=== PATIENT | male | born 1940 | race Caucasian/White ===

== ENCOUNTER 2019-07-25 13:51 | Inpatient (IN) | payer OTHER ==
[2019-07-25] VITALS (8 sets, daily range): BP systolic 76–139; BP diastolic 36–46
[~2019-07-25] VITALS: Ht 177.8 cm; Wt 101.6 kg
[~2019-07-25 13:51] MED LIST: ALLOPURINOL 30300 M2 PO; ASPIR 8181 MG PO; ATORVASTATIN CA40 MG PO; COREG6.25 MG PO; COZAAR 50 MG TA50 M2 PO; HIGH B/P MED; HUMALOG100 UNIT/1 SUBQ; INDOMETHACIN 5050 MG PO; NITROGLYCERIN0.4 MG SUBLING; PLAVIX 75 MG TA75 M1 PO; PRAVACHOL40 MG PO; PROTONIX40 M1 PO; SEROQUEL 25 MG25 M1 PO; VERAPAMIL HCL80 MG PO
[2019-07-25 14:39] LABS: HEMATOCRIT 39.5 % (42.0-52.0); MCH 30.3 pg (26.0-34.0); MCHC 32.9 g/dL (28.0-37.0); MCV 92.4 fL (80.0-100.0); MPV 10.1 fl. (7.2-11.1); NUCLEATED RBCS 0 /100WBC; PLATELET COUNT* 338 thou/uL (150-400); RBC 4.27 mil/uL (4.50-6.00); RDW-CV 16.7 % (10.5-14.5); WBC 25.9 thou/uL (4.0-11.0)
[2019-07-25 14:50] LABS: CALCIUM 9.1 mg/dL (8.5-10.1); CREATININE 7.1 mg/dL (0.6-1.3)
[2019-07-25 14:51] LABS: APTT 27.8 Seconds (25.0-31.3); PROTIME 10.4 Seconds (9.20-11.50)
[2019-07-25 15:02] LABS: ALBUMIN 2.8 g/dL (3.4-5.0); CK-MB MASS 1.4 ng/mL (<0.5-3.6); TOTAL BILIRUBIN 0.9 mg/dL (<0.1-1.0)
[2019-07-25 15:21] LABS: ABSOLUTE MONOCYTES 1.8 thou/uL (0.0-1.2); ABSOLUTE NEUTROPHILS 23.1 thou/uL (1.6-8.1)
[2019-07-25 15:22] LABS: ANISOCYTOSIS 1+; LARGE PLATELETS OCCASIONAL; PLATELET ESTIMATE ADEQUATE
--- NOTE | 2019-07-25 16:41 | EKG ---
[place] [address] ELECTROCARDIOGRAM REPORT Name: JANN CAMARGO Room: [place] [address] ADM IN M.R.#: [id number] Admission: 07/25/19 Attend Phys: Alice Bose Discharge: Date of : 44 Report #: [id number] THIS REPORT FOR: //name// [facility] ED Test Date: 2019-07-25 Test Time: 16:14:55 Pat Name: JANN SHAFFERTRONG Department: Room: [facility] Gender: M Manager University: [facility] : 1940 Requested By: Wilfrido Norton Order Number: [id number] MD: Vishal Real Measurements Intervals [place] Rate: 60 P: -29 AZ: 271 QRS: -11 QRSD: 121 T: 65 QT: 431 QTc: 431 Interpretive Statements Sinus arrhythmia Prolonged [place] interval Right bundle branch block Low voltage limb leads Compared to ECG 11/12/2016 07:50:46 Right bundle-branch block now present Ectopic atrial rhythm no longer present Electronically Signed On 07-25-2019 16:40:40 [employer]STAIRS [employer] by Vishal Real [email or web address] <ELECTRONICALLY SIGNED> By: Vishal Real MD, FACC 07/25/19 1640 1614 1614 Vishal Real MD, FAC /EPI
[2019-07-25 16:49] LABS: INFLUENZA A ANTIGEN Negative (Negative); INFLUENZA B ANTIGEN Negative (Negative)
[2019-07-25 16:49] LABS: BE -8.4 mmol/L (-2 to +3); PCO2 39.6 mmHg (35.0-45.0)
[2019-07-25 16:52] LABS: PO2 296.6 mmHg (75.0-100.0); pH 7.272 (7.340-7.450)
[2019-07-25 16:59] LABS: URINE BILIRUBIN NEGATIVE (Negative); URINE BLOOD NEGATIVE (Negative); URINE CLARITY CLEAR; URINE COLOR YELLOW; URINE GLUCOSE-RANDOM 3+ (Negative); URINE KETONES NEGATIVE (Negative); URINE LEUKOCYTES-REFLEX NEGATIVE (Negative); URINE NITRITE-REFLEX NEGATIVE (Negative); URINE PROTEIN TRACE (Negative); URINE UROBILINOGEN 0.2 E.U./dl (0.2-1.0)
[2019-07-25 18:20] LABS: AMP/METHAMP Negative (Negative); BARBITURATES Negative (Negative); BENZODIAZEPINES Negative (Negative); COCAINE Negative (Negative); METHADONE Negative (Negative); OPIATES Negative (Negative); PCP Negative (Negative); THC Negative (Negative)
[2019-07-26] VITALS (68 sets, daily range): BP systolic 62–132; BP diastolic 30–52
[2019-07-26 04:41] LABS: HEMATOCRIT 35.1 % (42.0-52.0); HEMOGLOBIN 11.4 gm/dL (14.0-18.0); MCH 30.1 pg (26.0-34.0); MCHC 32.3 g/dL (28.0-37.0); MCV 92.9 fL (80.0-100.0); RBC 3.78 mil/uL (4.50-6.00); RDW-CV 17.2 % (10.5-14.5); WBC 21.2 thou/uL (4.0-11.0)
[2019-07-26 04:54] LABS: CALCIUM 7.7 mg/dL (8.5-10.1); CREATININE 5.6 mg/dL (0.6-1.3); MAGNESIUM 1.6 mg/dL (1.8-2.4); PHOSPHORUS* 4.1 mg/dL (2.5-4.9)
[2019-07-26 05:13] LABS: BE -10.5 mmol/L (-2 to +3); pH 7.302 (7.340-7.450)
[2019-07-26 05:14] LABS: PO2 163.4 mmHg (75.0-100.0)
--- NOTE | 2019-07-26 13:33 | 2DMMODE ---
[place] [address] 2 D/M-MODE ECHOCARDIOGRAM Name: CAMARGOJANN Room: [address] IN .R.#: [id number] Admission: 07/25/19 Attend Phys: Alice alcaraz Sa Discharge: Date of : 44 Date of Service: 07/26/19 1332 Report #: [id number] THIS REPORT FOR: //name// APPROVED REPORT Study performed: 07/26/2019 09:55:42 EXAM: Comprehensive 2D, Doppler, and color-flow Echocardiogram Patient Location: Bedside BSA: 2.15 HR: 81 bpm BP: 108/31 mmHg Other Information Study Quality: Technically Difficult Technically limited study due to inability to position patient. Indications Dyspnea 2D Dimensions IVSd: 14.38 (7-11mm) LVOT Diam: 20.07 (18-24mm) LVDd: 45.73 mm PWd: 10.16 (7-11mm) Ascending Ao: 38.23 (22-36mm) LVDs: 23.12 (25-40mm) Aortic Root: 32.62 mm Volumes Left Atrial Volume (Systole) LA ESV Index: 28.50 mL/m2 Aortic Valve AoV Peak Gurpreet.: 1.82 m/s AO Peak Gr.: 13.27 mmHg LVOT Max P.41 mmHg AO Mean Gr.: 7.37 mmHg LVOT Mean P.59 mmHg LVOT Max V: 0.92 m/s AO V2 VTI: 26.38 cm LVOT Mean V: 0.57 m/s MISTY (VTI): 1.82 cm2 LVOT V1 VTI: 15.16 cm Mitral Valve E/A Ratio: 0.81 MV Decel. Time: 267.30 ms MV E Max Gurpreet.: 0.61 m/[place] [address] 2 D/M-MODE ECHOCARDIOGRAM Name: JANN CAMARGO Room: [address] IN .R.#: [id number] Admission: 07/25/19 Attend Phys: Alice alcaraz Sa Discharge: Date of : 44 Date of Service: 07/26/19 1332 Report #: [id number] MV PHT: 77.52 ms MVA (PHT): 2.84 cm2 TDI E/Lateral E': 7.63 E/Medial E': 8.71 Medial E' Gurpreet.: 0.07 m/s Lateral E' Gurpreet.: 0.08 m/s Pulmonary Valve PV Peak Gurpreet.: 0.81 m/s PV Peak Gr.: 2.65 mmHg Tricuspid Valve RAP Estimate: 5.00 mmHg TR Peak Gr.: 15.11 mmHg RVSP: 20.11 mmHg PA Pressure: 20.11 mmHg Left Ventricle The left ventricle is normal size. There is normal LV segmental wall motion. There is normal left ventricular wall thickness. Left ventricular systolic function is normal. The left ventricular ejection fraction is within the normal range. LVEF is 60-65%. Grade I - abnormal relaxation pattern. Right Ventricle The right ventricle is normal size. The right ventricular systolic function is normal. Atria The left atrium size is normal. Interatrial septum not well visualized. The right atrium size is normal. Aortic Valve The Aortic valve is sclerotic. No aortic regurgitation is present. There is no aortic valvular stenosis. Mitral Valve The mitral valve is normal in structure. There is no mitral valve regurgitation noted. No evidence of mitral valve stenosis. Tricuspid Valve The tricuspid valve is normal in structure. Trace tricuspid regurgitation. estimated pa pressure 20 mm Hg Pulmonic Valve Pulmonic valve is not well visualized. There is no pulmonic [place] [address] 2 D/M-MODE ECHOCARDIOGRAM Name: JANN CAMARGO Room: [address] IN .R.#: [id number] Admission: 07/25/19 Attend Phys: Alice alcaraz Sa Discharge: Date of : 44 Date of Service: 07/26/19 1332 Report #: [id number] Great Vessels Aortic root is mildly dilated. IVC is not well visualized. Pericardium There is no pericardial effusion. <Conclusion> Left ventricular systolic function is normal. The left ventricular ejection fraction is within the normal range. The Aortic valve is sclerotic. <ELECTRONICALLY SIGNED> By: Cuate Bower MD, FACC 07/26/19 133 31 31 Cuate Bower MD, FACC /INF
--- NOTE | 2019-07-26 18:05 | CON ---
[address] [address] CONSULTATION Name: JANN CAMARGO Room: [address] IN M.R.#: [id number] Admission: 07/25/19 Attend Phys: Alice Bose Discharge: Date of : 44 Report #: [id number] THIS REPORT FOR: //name// CC: Ruiz Mike DATE OF SERVICE: 07/26/2019 REASON FOR CONSULTATION: I was asked to see this 79-year-old gentleman for acute respiratory failure. HISTORY OF PRESENT ILLNESS: The patient is currently on the ventilator and is sedated. He is not able to give me any information. Apparently, he is a [facility] resident, who was brought to Emergency Room via EMS, was found down unresponsive by family member. His blood sugar was more than 400 for many days. They were not sure how long he was unresponsive. PAST MEDICAL HISTORY: Coronary artery disease, dementia, diabetes mellitus, hypertension, and renal insufficiency. ALLERGIES: No known drug allergies. MEDICATIONS: Currently, he is on Zosyn, DuoNeb, Levophed, normal saline, Protonix, potassium, fentanyl, and Versed drip. SOCIAL HISTORY: Unable to obtain. The patient is on the ventilator and sedated. FAMILY HISTORY: Unable to obtain. The patient is on the ventilator and sedated. PHYSICAL EXAMINATION: GENERAL: This is an elderly gentleman on the ventilator. VITAL SIGNS: His O2 saturation on 40% FiO2 is 96%, respiratory rate 14, heart rate 100, blood pressure 102/68, temperature of 102.2. HEENT: Normocephalic, atraumatic. Pupils equal, round, reactive to light. He is orally intubated. Nose is clear. NECK: There is no lymphadenopathy or thyromegaly. CARDIOVASCULAR: Regular rate and rhythm. PMI is nondisplaced. CHEST: Inspection is normal. LUNGS: There are bibasilar crackles, dullness at the bases. ABDOMEN: Soft. Bowel sounds are good. There is no mass. EXTREMITIES: There is no edema. LYMPHATICS: There is no lymphadenopathy. NEUROLOGIC: On vent, sedated. [place]IN: [place] [address] CONSULTATION Name: JANN CAMARGO Trevor Room: [address] IN [facility].#: [id number] Admission: 07/25/19 Attend Phys: Alice Bose Discharge: Date of : 44 Report #: [id number] LABORATORY DATA: I reviewed the following lab data: CT of the chest showed ET tube in low position, mild basilar atelectasis/infiltrate. CT of abdomen showed fecal impaction, adxkwfmp-pm-ipiwow distention of urinary bladder, right kidney mass. Cervical spine CT, no acute abnormality. CT of the head, no acute abnormality. WBC of 25.9, hemoglobin of 13, platelets 338. Sodium 146, potassium 5, chloride 110, CO2 of 20, glucose 325, BUN 105, creatinine is 7.1. Lactic acid 3.6, repeat 1.3. Troponin is less than 0.06. BNP of 2023. Influenza A and B negative. Urine drug screen negative. IMPRESSION: 1. Acute respiratory failure secondary to septic shock, acute kidney injury versus others. 2. Septic shock? source could be pneumonia versus urinary tract infection. 3. Septic shock. 4. Acute kidney injury. 5. Diabetes mellitus. 6. Leukocytosis. 7. Encephalopathy. PLAN AND RECOMMENDATIONS: 1. Titrate FiO2 to keep O2 saturation 94%. 2. ABG. We will change vent setting per ABG. 3. Continue ventilator support until the patient is more stable. 4. Pressors to keep mean arterial pressure more than 65. 5. Follow up blood cultures. 6. Continue antibiotic. 7. The patient has acute kidney injury, may consider Nephrology consultation. Continue hydration. Monitor creatinine and potassium. 8. Protonix for stress ulcer prophylaxis. 9. Lovenox for DVT prophylaxis. 10. Morning ABG and chest x-ray. 10. The findings and recommendations were discussed with RN and RT. Thank you very much for allowing me to participate in care of this very nice gentleman. <ELECTRONICALLY SIGNED> By: Layla Hernandez MD 07/26/19 1805 0433 [id number] Hernandez MD /nt
[2019-07-27] VITALS (68 sets, daily range): BP systolic 74–151; BP diastolic 35–120
[2019-07-27 04:49] LABS: HEMATOCRIT 36.8 % (42.0-52.0); HEMOGLOBIN 11.8 gm/dL (14.0-18.0); MCHC 32.2 g/dL (28.0-37.0); MCV 93.2 fL (80.0-100.0); MPV 10.1 fl. (7.2-11.1); RBC 3.94 mil/uL (4.50-6.00); RDW-CV 16.7 % (10.5-14.5); WBC 27.1 thou/uL (4.0-11.0)
[2019-07-27 05:04] LABS: ALBUMIN 1.7 g/dL (3.4-5.0); CALCIUM 7.8 mg/dL (8.5-10.1); CREATININE 5.3 mg/dL (0.6-1.3); PHOSPHORUS* 4.6 mg/dL (2.5-4.9); POTASSIUM 4.7 mmol/L (3.5-5.1)
[2019-07-27 05:29] LABS: BE -12.2 mmol/L (-2 to +3); PCO2 25.3 mmHg (35.0-45.0); pH 7.308 (7.340-7.450)
[2019-07-27 05:31] LABS: PO2 159.5 mmHg (75.0-100.0)
[2019-07-28] VITALS (65 sets, daily range): BP systolic 69–123; BP diastolic 33–59
[2019-07-28 04:28] LABS: HEMOGLOBIN 11.6 gm/dL (14.0-18.0); MCH 29.6 pg (26.0-34.0); MCHC 32.1 g/dL (28.0-37.0); MCV 92.3 fL (80.0-100.0); MPV 10.1 fl. (7.2-11.1); PLATELET COUNT* 295 thou/uL (150-400); RDW-CV 16.9 % (10.5-14.5)
[2019-07-28 04:39] LABS: ALBUMIN 1.5 g/dL (3.4-5.0); CALCIUM 7.7 mg/dL (8.5-10.1); CREATININE 5.1 mg/dL (0.6-1.3); MAGNESIUM 1.7 mg/dL (1.8-2.4); PHOSPHORUS* 3.7 mg/dL (2.5-4.9); POTASSIUM 4.8 mmol/L (3.5-5.1)
[2019-07-28 05:00] LABS: BE -8.4 mmol/L (-2 to +3); PCO2 26.5 mmHg (35.0-45.0); pH 7.374 (7.340-7.450)
[2019-07-28 05:02] LABS: WBC 43.2 thou/uL (4.0-11.0)
[2019-07-28 05:04] LABS: ALBUMIN 1.5 g/dL (3.4-5.0); CALCIUM 7.7 mg/dL (8.5-10.1); CREATININE 5.1 mg/dL (0.6-1.3); POTASSIUM 4.8 mmol/L (3.5-5.1); TOTAL BILIRUBIN 0.4 mg/dL (<0.1-1.0); TOTAL PROTEIN 4.8 g/dL (6.4-8.2)
--- NOTE | 2019-07-28 10:30 | CON ---
[address] [address] CONSULTATION Name: JANN CAMARGO Room: [address] IN M.R.#: [id number] Admission: 07/25/19 Attend Phys: Alice Bose Discharge: Date of : 44 Report #: [id number] THIS REPORT FOR: //name// CC: Ruiz Mike DATE OF SERVICE: 07/27/2019 REQUESTING PHYSICIAN: Alice Mike MD REASON FOR CONSULTATION: Acute kidney injury. HISTORY OF PRESENT ILLNESS: The patient is a 79-year-old gentleman who was at [facility] for rehab while he was found down unresponsive by family members. He was transferred to [place] [facility] to be intubated. He was found to be septic and acute kidney injury. His creatinine at baseline is around 1.7 and it was 7.1 on admission, potassium was 5.0. He was given fluids. His creatinine came down to 5.3 this morning, potassium is 4.7, carbon dioxide 16. White count is 27,100. PAST MEDICAL HISTORY: Significant for: 1. Chronic kidney disease stage 3, baseline creatinine around 1.7. 2. History of coronary artery disease. 3. History of diabetes mellitus type 2. 4. Peripheral arterial disease, history of carotid stenosis. SOCIAL HISTORY: No current tobacco or alcohol abuse. FAMILY HISTORY: Noncontributory to his age. REVIEW OF SYSTEMS: Unobtainable secondary to him being intubated. PHYSICAL EXAMINATION: GENERAL: He is in Intensive Care Unit, intubated. VITAL SIGNS: Blood pressure 144/44, heart rate is 86, temperature now is 38.0. Maximal temperature was 39.0. HEENT: Pupils are round. NECK: Supple. LUNGS: Decreased air movements. CARDIOVASCULAR: Regular rate. ABDOMEN: Soft. LOWER EXTREMITIES: No edema. DIAGNOSTIC DATA: His chest x-ray revealed some atelectasis or infiltrate in the right side. His renal ultrasound was done. Abdominal [place] [address] CONSULTATION Name: JANN CAMARGO Room: [address] IN [facility].#: [id number] Admission: 07/25/19 Attend Phys: Alice alcaraz [place] Discharge: Date of : 44 Report #: [id number] done and it revealed presence of indeterminate right renal mass, solid mass was not excluded. ASSESSMENT: 1. Acute kidney injury due to sepsis. Sepsis, most likely due to pneumonia. 2. Chronic kidney disease stage 3. 3. Coronary artery disease. 4. Diabetes mellitus type 2. 5. Peripheral arterial disease. 6. Renal mass. PLAN: 1. Continue with IV fluids. We will change fluids to D5 half normal with 1 amp of bicarbonate. 2. Continue his antibiotics. 3. Keep Lanza in. 4. Strict I's and O's. 5. We will consult Urology to address renal mass, obviously nothing will be done now when he is stable. Renal mass will be addressed when the patient's condition improved. I discussed this case with the patient's son and ICU nurse. Thank you very much. <ELECTRONICALLY SIGNED> By: Jass Larry MD 07/28/19 1030 0935 [id number] Larry MD /nt
[2019-07-28 10:39] LABS: ABSOLUTE LYMPHOCYTES 0.4 thou/uL (0.8-5.3); ABSOLUTE MONOCYTES 0.4 thou/uL (0.0-1.2); ABSOLUTE NEUTROPHILS 42.3 thou/uL (1.6-8.1)
[2019-07-28 10:40] LABS: PLATELET ESTIMATE ADEQUATE; TOXIC GRANULATION 2+
[2019-07-28 13:29] LABS: ICTOTEST (BILI CONFIRMATORY) Positive (Negative); URINE BILIRUBIN 1+ (Negative); URINE BLOOD 2+ (Negative); URINE CLARITY CLEAR; URINE COLOR YELLOW; URINE GLUCOSE-RANDOM NEGATIVE (Negative); URINE KETONES NEGATIVE (Negative); URINE LEUKOCYTES-REFLEX NEGATIVE (Negative); URINE NITRITE-REFLEX NEGATIVE (Negative); URINE PROTEIN TRACE (Negative); URINE SPECIFIC GRAVITY 1.025 (1.005-1.030)
[2019-07-28 13:36] LABS: BACTERIA-REFLEX 1-9 Few /HPF (None Seen); CASTS None Seen /LPF (None Seen); CRYSTALS None Seen /LPF (None Seen); MUCUS None Seen strn/LPF (None Seen); SQUAMOUS 0-3 Few /LPF (0-3); URINE RBC 3-10 Few /HPF (0-2); URINE WBC-REFLEX 0-5 Rare /HPF (0-5)
[2019-07-28 14:24] LABS: BE -8.3 mmol/L (-2 to +3); PCO2 22.4 mmHg (35.0-45.0); pH 7.417 (7.340-7.450)
[2019-07-28 14:27] LABS: PO2 145.7 mmHg (75.0-100.0)
[2019-07-29] VITALS (8 sets, daily range): BP systolic 98–144; BP diastolic 40–110
[2019-07-29 02:12] LABS: BASOPHILS 0.3 %; EOSINOPHILS 0.3 %; HEMATOCRIT 45.3 % (42.0-52.0); LYMPHOCYTES 3.2 %; MCH 30.2 pg (26.0-34.0); MCHC 32.2 g/dL (28.0-37.0); MCV 93.9 fL (80.0-100.0); MONOCYTES 1.8 %; MPV 10.3 fl. (7.2-11.1); NUCLEATED RBCS 0 /100WBC; POLYS 94.4 %; RBC 4.83 mil/uL (4.50-6.00); RDW-CV 17.2 % (10.5-14.5)
[2019-07-29 02:25] LABS: ABSOLUTE BASOPHILS 0.3 thou/uL (0.0-0.2); ABSOLUTE EOSINOPHILS 0.3 thou/uL (0.0-0.7); ABSOLUTE LYMPHOCYTES 3.1 thou/uL (0.8-5.3); ABSOLUTE MONOCYTES 1.8 thou/uL (0.0-1.2); ABSOLUTE NEUTROPHILS 92.2 thou/uL (1.6-8.1); PLATELET COUNT* 206 thou/uL (150-400)
[2019-07-29 02:29] LABS: WBC 97.7 thou/uL (4.0-11.0)
[2019-07-29 02:30] LABS: HEMOGLOBIN 14.6 gm/dL (14.0-18.0)
[2019-07-29 02:42] LABS: ALBUMIN 1.3 g/dL (3.4-5.0); CALCIUM 7.9 mg/dL (8.5-10.1); CREATININE 5.9 mg/dL (0.6-1.3); MAGNESIUM 2.6 mg/dL (1.8-2.4); TOTAL BILIRUBIN 0.5 mg/dL (<0.1-1.0); TOTAL PROTEIN 4.8 g/dL (6.4-8.2)
--- NOTE | 2019-08-02 12:06 | CON ---
[address] [address] CONSULTATION Name: CAMARGOJANN Trevor Room: [address] IN M.R.#: [id number] Admission: 07/25/19 Attend Phys: Alice Bose Discharge: 07/29/19 Date of : 44 Report #: [id number] THIS REPORT FOR: //name// cc: Ruiz Monge MD, Bruce D. MD ~ THIS REPORT FOR: //name// CC: Ruiz Mike DATE OF SERVICE: 07/28/2019 INFECTIOUS DISEASE CONSULTATION ATTENDING PHYSICIAN: Dr. Mike. REASON FOR EVALUATION: Marked leukocytosis. The patient is critically ill, marked hyperglycemia. HISTORY OF PRESENT ILLNESS: Chart reviewed, the patient examined. This is a 79-year-old known diabetes mellitus, has been complicated by some vasculopathy, has had recent hospitalization, referred for nursing facility, was found down with markedly elevated blood sugars. He is markedly encephalopathic, transferred to this acute care hospital. He was deteriorating. Ultimately, he was noted to be in multiorgan failure. He was intubated and now is maintained on chronic ventilatory support over the course of the last 72 hours. He is not responsive at this point. He is noted to be in renal failure with a creatinine of 5.1. Over the course of the hospitalization, he has undergone repeated testing, was found to have an elevated white count initially to 25.9, dipped previously and then increased to 43.2 this morning. Chest x-ray as of today showed minimal atelectasis without congestive heart failure. Urinalysis at the time of admission was otherwise unremarkable. He was empirically started on therapy with piperacillin and tazobactam. ALLERGIES: None known. CURRENT MEDICINES: Include fentanyl, insulin sliding scale, acetaminophen, Zosyn, pantoprazole, p.r.n. analgesics and antiemetics. PAST MEDICAL HISTORY: Includes diabetes mellitus type 2, insulin requiring, complicated by vasculopathy, history of hypertension, has some renal insufficiency, has known atherosclerotic coronary artery disease, dementia, hyperlipidemia. SOCIAL HISTORY: Unknown. FAMILY HISTORY: Noncontributory. REVIEW OF SYSTEMS: Not obtainable. PHYSICAL EXAMINATION: GENERAL: He is again seen in the ICU. He is intubated. He is in supine position. He is not responsive, appears somewhat chronically ill, undernourished. VITAL SIGNS: Temperature 100, pulse 89, respirations 20, blood pressure 113/59. SKIN: Warm, dry. HEENT: ET and OG in place. NECK: Supple. LUNGS: Scattered few coarse breath sounds. HEART: Borderline tachycardic, regular. ABDOMEN: Mildly firm. Some evidence of grimacing with dialysis. It is unclear if he has any signs of peritonitis. GENITOURINARY AND RECTAL: Deferred. LABORATORY AND DIAGNOSTIC DATA: Most recent CBC: White count was 43.2, H and H 11.6 and 36.0, platelets of 295. Differential showed marked leukocytosis, 2+ toxic granulations. Chest x-ray as described. Electrolytes: Sodium 147, potassium 5.1, chloride 115, bicarbonate is 15, anion gap elevated at 17, BUN and creatinine 105 and 5.1, glucose of 237, albumin of 1.5. ABGs: PH 7.374, pCO2 of 26.5, pO2 of 139.0 on FiO2 of 40. Abdominal plain film showed abnormal bowel gas pattern with gas distension of the rectosigmoid colon, evidence of colonic wall thickening, question of colitis. ASSESSMENT: Marked leukocytosis. I think this is likely driven indeed by colitis. We will check C diff toxin, PCR. Could empirically treat with adjusting antimicrobial therapy. Can entirely exclude an ischemic process. I think Surgery should be consulted to evaluate. At this point, he has got multiple poor prognostic indicators including renal failure, hypoalbuminemia and hemodynamic instability. Continue supportive measures. Wean off as allowed. Actually repeat blood cultures as well. <ELECTRONICALLY SIGNED> By: Maurizio Hoffman MD 08/02/19 1206 1228 [id number] Hoffman MD /nt
== END 2019-07-29 07:18 | DRG 871 ==
LOC: M.ERS 13:51 → M.TBA-ER 16:04 → M.ICU 16:04
PROVIDERS: Family Medicine; Internal Medicine Nephrology; Internal Medicine Pulmonary Disease; ADMIT Family Medicine
PROC: B548ZZA Ultrasonography of Superior Vena Cava, Guidance (ICD-10-PCS; principal; 2019-07-25)
PROC: 0BH17EZ Insertion of Endotracheal Airway into Trachea, Via Natural or Artificial Opening (ICD-10-PCS; principal; 2019-07-25)
PROC: 02HV33Z Insertion of Infusion Device into Superior Vena Cava, Percutaneous Approach (ICD-10-PCS; principal; 2019-07-25)
PROC: 5A1945Z Respiratory Ventilation, 24-96 Consecutive Hours (ICD-10-PCS; principal; 2019-07-25)
DX: A41.9 Sepsis, unspecified organism (principal); R65.21 Severe sepsis with septic shock; J18.9 Pneumonia, unspecified organism; E43 Unspecified severe protein-calorie malnutrition; G93.41 Metabolic encephalopathy; J96.00 Acute respiratory failure, unspecified whether with hypoxia or hypercapnia; N17.9 Acute kidney failure, unspecified; E87.0 Hyperosmolality and hypernatremia; J98.11 Atelectasis; I12.9 Hypertensive chronic kidney disease with stage 1 through stage 4 chronic kidney disease, or unspecified chronic kidney disease; I25.10 Atherosclerotic heart disease of native coronary artery without angina pectoris; F03.90 Unspecified dementia, unspecified severity, without behavioral disturbance, psychotic disturbance, mood disturbance, and anxiety; E11.22 Type 2 diabetes mellitus with diabetic chronic kidney disease; E11.51 Type 2 diabetes mellitus with diabetic peripheral angiopathy without gangrene; N18.3 Chronic kidney disease, stage 3 (moderate); E78.5 Hyperlipidemia, unspecified; K59.00 Constipation, unspecified; M10.9 Gout, unspecified; R57.1 Hypovolemic shock; Z79.899 Other long term (current) drug therapy; Z79.4 Long term (current) use of insulin; Z68.32 Body mass index [BMI] 32.0-32.9, adult; Z28.89 Immunization not carried out for other reason; Z79.82 Long term (current) use of aspirin